=== PATIENT | female | born 1975 | race Caucasian/White ===

== ENCOUNTER → 2025-03-03 14:06 | Outpatient (REF) | payer BC, SELFPAY | LOC: MRI 14:06 | PROVIDERS: ATTENDING PHYSICIAN Internal Medicine Gastroenterology; FAMILY PHYSICIAN Family Medicine Sports Medicine | DX: D18.03 Hemangioma of intra-abdominal structures (principal) | CPT/HCPCS: 74183; A9575 ==

== ENCOUNTER → 2025-07-21 15:19 | Outpatient (REF) | payer BC, SELFPAY | LOC: RAD 15:19 | PROVIDERS: ATTENDING PHYSICIAN Family Medicine Sports Medicine; FAMILY PHYSICIAN Internal Medicine | DX: K57.80 Diverticulitis of intestine, part unspecified, with perforation and abscess without bleeding (principal) | CPT/HCPCS: 74177; Q9967 ==